=== PATIENT | female | born 1985 | race Hispanic/Latino ===

== ENCOUNTER 2022-09-17 00:02 | Inpatient (IN) | payer OTHER ==
[2022-09-17] MEDS ORDERED: Calcium Carbonate 500 MG ChewTAB PO PRN (00:57)
[2022-09-17] MEDS ORDERED: Ondansetron PF 4 MG/2 ML Vial IVP PRN (00:57)
[2022-09-17] MEDS ORDERED: Pantoprazole 40 MG VIAL IVP SCH ×2 (01:15→09:00)
[2022-09-17 02:18] VITALS: BMI 27.2
[2022-09-17 05:58] LABS: SARS-CoV-2 NAA Rapid Test Not Detected (NotDetected)
[2022-09-17 07:43] LABS: Anion Gap 15 mmol/L (10-20); BUN (Urea Nitrogen) 24 mg/dL (7.0-18.7); Calc. Creatinine Clearance 98 mL/min (70-130); Calcium 8.3 mg/dL (7.8-10.44); Chloride 129 mmol/L (98-107); Estimated GFR 88; Glucose 77 mg/dL (70-105); Potassium 3.5 mmol/L (3.5-5.1); Sodium 148 mmol/L (136-145)
[2022-09-17 07:47] LABS: Carbon Dioxide 8 mmol/L (22-29)
[2022-09-17 07:52] LABS: #Monocytes 0.3 10x3/uL (0.0-1.1); %Basophils 0.5 % (0.0-2.0); %Eosinophils 0.8 % (0.0-6.0); %Lymphocytes 12.4 % (18.0-47.0); %Monocytes 6.9 % (0.0-10.0); %Neutrophils 78.9 % (40.0-75.0); Hemoglobin 8.5 g/dL (12.0-15.5); Mean Corpuscular HGB CONC 30.4 g/dL (32.0-36.0); Mean Corpuscular Volume 105.3 fl (81.6-98.3); Mean Platelet Volume 11.9 fl (7.4-10.4); Platelet Count 76 10x3/uL (150-450); RBC Distribution Width 19.8 % (11.5-14.5); Red Blood Cell (RBC) Count 2.66 10x6/uL (3.90-5.03); White Blood Cell (WBC) Count 3.8 10x3/uL (3.5-10.5)
[2022-09-17] MEDS: Pantoprazole 40 MG VIAL IVP SCH ×2 (08:28→21:12)
[2022-09-17] MEDS: Spironolactone 25 MG TAB PO SCH (08:32)
[2022-09-17] MEDS: Cyanocobalamin (Vitamin B-12) 1,000 MCG TAB PO SCH (08:33)
[2022-09-17] MEDS: Multivitamin W/ Minerals 1 TAB PO SCH (08:33)
[2022-09-17] MEDS: Carvedilol 6.25 MG TAB PO SCH ×2 (08:34→16:38)
[2022-09-17] MEDS: Rifaximin 550 MG TAB PO SCH ×2 (08:34→21:11)
[2022-09-17] MEDS: Folic Acid 1 MG TAB PO SCH (08:35)
[2022-09-17] MEDS: Ferrous Sulfate 325 MG TAB PO SCH (08:35)
[2022-09-17 08:37] LABS: Burr Cells SLIGHT = 2-5 cells (100X) (0-1/hpf); Hypochromia SLIGHT = 6-15 cells (100X) (0-5/hpf); Macrocytosis SLIGHT = 6-15 cells (100X) (0-5/hpf); Schistocytes SLIGHT = 2-5 cells (100X) (0-1/hpf)
[2022-09-17 08:38] LABS: Polychromasia SLIGHT = 2-3 cells (100X) (0-2/hpf)
[2022-09-17 08:39] LABS: Platelet Morphology Comment Appears Decreased
[2022-09-17] MEDS ORDERED: Torsemide 20 MG TAB PO SCH (09:00)
[2022-09-17] MEDS ORDERED: RIOCIGUAT 0.5 MG PO SCH (09:00)
[2022-09-17 09:24] LABS: Actual Bicarbonate (HCO3v) 12 mEq/L (22-28); Base Excess -13.5 mEq/L (-2 - +2); Calcium, Ionized (venous) 1.16 mmol/L (1.16-1.32); Chloride (VBG) 122 mmol/L (98-106); Hemoglobin (Hb) 9.3 g/dL (11.7-15.5); Potassium (VBG) 3.63 mmol/L (3.70-5.30); Puncture Site Other Site; RapidComm Collect By LAB; Sodium 148.6 mmol/L (133-146)
[2022-09-17 10:12] LABS: ALT (SGPT) 25 U/L (8-55); AST (SGOT) 29 U/L (5-34); Albumin 2.9 g/dL (3.5-5.0); Alkaline Phosphatase 112 U/L (40-110); Anion Gap 13 mmol/L (10-20); BUN (Urea Nitrogen) 22 mg/dL (7.0-18.7); Bilirubin, Total 1.9 mg/dL (0.2-1.2); Calc. Creatinine Clearance 89 mL/min (70-130); Calcium 8.3 mg/dL (7.8-10.44); Carbon Dioxide 10 mmol/L (22-29); Chloride 128 mmol/L (98-107); Estimated GFR 79; Globulin 3.7 g/dL (2.4-3.5); Glucose 96 mg/dL (70-105); Iron 54 ug/dL (50-170); Iron Binding Capacity, Total 243 mcg/dL (265-497); Potassium 3.4 mmol/L (3.5-5.1); Protein, Total 6.6 g/dL (6.0-8.3); Sodium 148 mmol/L (136-145)
[2022-09-17] MEDS ORDERED: Sodium Bicarbonate Tab 325 MG TAB PO SCH (10:30)
[2022-09-17] MEDS: Dextrose 5% in Water 1,000 ML IV SCH ×2 (11:33→22:20)
[2022-09-17 12:12] LABS: Bilirubin Neg (Negative); Blood, Urine Negative (Negative); Clarity Clear (Clear); Glucose, Urine (Dipstick) Normal (Negative); Ketone, Urine Negative (Negative); Leukocyte Negative (Negative); Nitrite Negative (Negative); Protein, Urine (Dipstick) Negative (Neg-Trace); Specific Gravity, Urine 1.005 (1.005-1.030); Urobilinogen Normal mg/dL (Less than 2)
[2022-09-17] MEDS: Acetaminophen 500 MG TAB PO PRN ×2 (12:12→19:01)
[2022-09-17 12:23] LABS: RBC/HPF 0-3 HPF (0-3); Squamous Epithelial 0-3 HPF (0-3); WBC/HPF 0-3 HPF (0-3)
[2022-09-17 12:24] LABS: Bacteria/HPF 1+ HPF (None Seen)
[2022-09-17] MEDS ORDERED: cefTRIAXone\\ROCEPHIN 1 GM in Sodium Chloride 0.9% 100 ML IVPB SCH (12:45)
[2022-09-17] MEDS: Sodium Bicarbonate Tab 325 MG TAB PO SCH ×2 (14:25→21:11)
[2022-09-17] MEDS: Morphine 2 MG/ML VIAL SLOW IVP PRN ×2 (16:37→21:12)
[2022-09-17 17:08] LABS: Potassium, Urine Less than 10.0 mmol/L; Sodium, Urine 138 mmol/L (Not Available)
[2022-09-17] MEDS: SELEXIPAG 800 MCG PO SCH (21:34)
[2022-09-17] MEDS: SELEXIPAG 200 MCG PO SCH (21:34)
[2022-09-17 22:06] LABS: Anion Gap 12 mmol/L (10-20); BUN (Urea Nitrogen) 19 mg/dL (7.0-18.7); Calc. Creatinine Clearance 73 mL/min (70-130); Calcium 7.5 mg/dL (7.8-10.44); Carbon Dioxide 15 mmol/L (22-29); Chloride 118 mmol/L (98-107); Estimated GFR 62; Glucose 92 mg/dL (70-105); Potassium 3.3 mmol/L (3.5-5.1); Sodium 142 mmol/L (136-145)
[2022-09-18] MEDS: Morphine 2 MG/ML VIAL SLOW IVP PRN ×2 (01:47→13:51)
[2022-09-18] MEDS ORDERED: Potassium Chloride 20 MEQ TAB PO SCH (08:00)
[2022-09-18] MEDS ORDERED: Sodium Bicarbonate 150 MEQ in Dextrose 5% in Water 1,000 ML IV SCH (08:00)
[2022-09-18] MEDS ORDERED: Pantoprazole 40 MG VIAL ONE (08:12)
[2022-09-18] MEDS: Dextrose 5% in Water 1,000 ML IV SCH (08:28)
[2022-09-18] MEDS ORDERED: MACITENTAN 10 MG PO SCH (09:00)
[2022-09-18] MEDS: Spironolactone 25 MG TAB PO SCH (09:41)
[2022-09-18] MEDS: Ferrous Sulfate 325 MG TAB PO SCH (09:41)
[2022-09-18] MEDS: Sodium Bicarbonate Tab 325 MG TAB PO SCH ×3 (09:41→20:38)
[2022-09-18] MEDS: Rifaximin 550 MG TAB PO SCH ×2 (09:41→20:37)
[2022-09-18] MEDS: Folic Acid 1 MG TAB PO SCH (09:41)
[2022-09-18] MEDS: SELEXIPAG 800 MCG PO SCH ×3 (09:42→21:03)
[2022-09-18] MEDS: SELEXIPAG 200 MCG PO SCH ×2 (09:42→20:39)
[2022-09-18] MEDS: Cyanocobalamin (Vitamin B-12) 1,000 MCG TAB PO SCH (09:43)
[2022-09-18] MEDS: Multivitamin W/ Minerals 1 TAB PO SCH (09:43)
[2022-09-18] MEDS: Carvedilol 6.25 MG TAB PO SCH ×2 (09:43→17:24)
[2022-09-18] MEDS: Pantoprazole 40 MG VIAL IVP SCH ×2 (09:43→20:38)
[2022-09-18 10:40] LABS: #Monocytes 0.2 10x3/uL (0.0-1.1); %Basophils 0.4 % (0.0-2.0); %Eosinophils 1.5 % (0.0-6.0); %Lymphocytes 11.8 % (18.0-47.0); %Monocytes 8.4 % (0.0-10.0); %Neutrophils 77.5 % (40.0-75.0); Hemoglobin 7.5 g/dL (12.0-15.5); Mean Corpuscular HGB CONC 30.4 g/dL (32.0-36.0); Mean Corpuscular Hemoglobin 31.4 pg (27.0-33.0); Mean Corpuscular Volume 103.3 fl (81.6-98.3); Mean Platelet Volume 12.6 fl (7.4-10.4); Platelet Count 85 10x3/uL (150-450); RBC Distribution Width 18.2 % (11.5-14.5); Red Blood Cell (RBC) Count 2.39 10x6/uL (3.90-5.03); White Blood Cell (WBC) Count 2.6 10x3/uL (3.5-10.5)
[2022-09-18 10:47] LABS: Anion Gap 10 mmol/L (10-20); BUN (Urea Nitrogen) 15 mg/dL (7.0-18.7); Calc. Creatinine Clearance 75 mL/min (70-130); Calcium 7.4 mg/dL (7.8-10.44); Carbon Dioxide 15 mmol/L (22-29); Chloride 114 mmol/L (98-107); Estimated GFR 64; Glucose 106 mg/dL (70-105); Potassium 2.7 mmol/L (3.5-5.1); Sodium 136 mmol/L (136-145)
[2022-09-18 10:48] LABS: ALT (SGPT) 24 U/L (8-55); AST (SGOT) 27 U/L (5-34); Albumin 2.5 g/dL (3.5-5.0); Alkaline Phosphatase 92 U/L (40-110); Bilirubin, Direct 0.4 mg/dL (0.1-0.3); Bilirubin, Total 0.9 mg/dL (0.2-1.2); Protein, Total 5.8 g/dL (6.0-8.3)
[2022-09-18] MEDS ORDERED: Electrolyte Replacement Protocol 1 EACH FS SCH (12:45)
[2022-09-18] MEDS ORDERED: Potassium Chloride 40 MEQ in Premix Bag 1 BAG IVPB SCH (12:45)
[2022-09-18] MEDS ORDERED: Electrolyte Replacement Protocol FS PRN (12:45)
[2022-09-18] MEDS ORDERED: Potassium Chloride 20 MEQ in Premix Bag 1 BAG IVPB SCH ×2 (13:00→16:00)
[2022-09-18] MEDS ORDERED: Piperacillin/Tazobactam 3.375 GM in Sodium Chloride 0.9% 100 ML IVPB SCH (13:00)
[2022-09-18 13:26] LABS: Hemoglobin 7.9 g/dL (12.0-15.5); Platelet Count 87 10x3/uL (150-450)
[2022-09-18 13:34] LABS: Anion Gap 12 mmol/L (10-20); BUN (Urea Nitrogen) 16 mg/dL (7.0-18.7); Calc. Creatinine Clearance 65 mL/min (70-130); Calcium 7.9 mg/dL (7.8-10.44); Carbon Dioxide 14 mmol/L (22-29); Chloride 114 mmol/L (98-107); Estimated GFR 54; Glucose 101 mg/dL (70-105); Magnesium 1.5 mg/dL (1.6-2.6); Potassium 3.2 mmol/L (3.5-5.1); Sodium 137 mmol/L (136-145)
[2022-09-18] MEDS: Nystatin 500,000 UNITS/5 ML UDCUP SSW SCH ×3 (13:54→20:37)
[2022-09-18] MEDS ORDERED: Piperacillin/Tazobactam 3.375 GM VIAL ONE (14:05)
[2022-09-18] MEDS ORDERED: Magnesium 2 GM/50 ML(in water) 2 GM in Premix Bag 1 BAG IVPB SCH (15:00)
[2022-09-18] MEDS ORDERED: Potassium Chloride 20 MEQ/100 ML PREMIX BAG ONE (16:27)
[2022-09-18] MEDS ORDERED: Magnesium 2 GM/50 ML BAG (IN WATER) ONE (16:27)
[2022-09-18] MEDS ORDERED: Albumin 25% 25 GM/100 ML BOT IVPB SCH (17:00)
[2022-09-18] MEDS ORDERED: Sodium Chloride 0.9% 250 ML IV SCH (17:00)
[2022-09-18] MEDS: Piperacillin/Tazobactam 3.375 GM in Sodium Chloride 0.9% 100 ML IVPB SCH (18:14)
[2022-09-18] MEDS: Albumin 25% 25 GM/100 ML BOT IVPB SCH ×2 (18:46→23:41)
[2022-09-18 20:18] LABS: Potassium 4.1 mmol/L (3.5-5.1)
[2022-09-18] MEDS ORDERED: Apixaban 2.5 MG TAB PO SCH (21:00)
[2022-09-19] MEDS: Piperacillin/Tazobactam 3.375 GM in Sodium Chloride 0.9% 100 ML IVPB SCH (00:43)
[2022-09-19 03:45] LABS: #Eosinphils 0.1 10x3/uL (0.0-0.5); #Monocytes 0.3 10x3/uL (0.0-1.1); #Neutrophils 1.7 10x3/uL (1.5-8.4); %Basophils 0.4 % (0.0-2.0); %Eosinophils 2.4 % (0.0-6.0); %Lymphocytes 13.4 % (18.0-47.0); %Monocytes 12.2 % (0.0-10.0); %Neutrophils 70.8 % (40.0-75.0); Hemoglobin 7.9 g/dL (12.0-15.5); Mean Corpuscular HGB CONC 29.9 g/dL (32.0-36.0); Mean Corpuscular Hemoglobin 31.6 pg (27.0-33.0); Mean Corpuscular Volume 105.6 fl (81.6-98.3); Mean Platelet Volume 12.6 fl (7.4-10.4); Platelet Count 65 10x3/uL (150-450); RBC Distribution Width 17.7 % (11.5-14.5); White Blood Cell (WBC) Count 2.5 10x3/uL (3.5-10.5)
[2022-09-19 04:02] LABS: Anion Gap 13 mmol/L (10-20); BUN (Urea Nitrogen) 15 mg/dL (7.0-18.7); Calc. Creatinine Clearance 61 mL/min (70-130); Calcium 8.2 mg/dL (7.8-10.44); Carbon Dioxide 19 mmol/L (22-29); Chloride 111 mmol/L (98-107); Estimated GFR 50; Glucose 96 mg/dL (70-105); Magnesium 2.3 mg/dL (1.6-2.6); Potassium 3.7 mmol/L (3.5-5.1); Sodium 139 mmol/L (136-145)
[2022-09-19] MEDS: Morphine 2 MG/ML VIAL SLOW IVP PRN (04:11)
[2022-09-19 04:22] LABS: Anisocytosis SLIGHT = 6-15 cells (100X) (0-5/hpf); Macrocytosis SLIGHT = 6-15 cells (100X) (0-5/hpf); Polychromasia SLIGHT = 2-3 cells (100X) (0-2/hpf); Schistocytes SLIGHT = 2-5 cells (100X) (0-1/hpf)
[2022-09-19 04:23] LABS: Platelet Morphology Comment Appears Decreased; Tear Drops SLIGHT = 2-5 cells (100X) (0-1/hpf)
[2022-09-19 05:03] VITALS: BP 102/63; TEMP 99.1
[2022-09-19] MEDS: Albumin 25% 25 GM/100 ML BOT IVPB SCH (05:14)
== END 2022-09-19 05:50 | disposition short-term general hospital (02) | DRG 442 ==
LOC: CSHTELE 00:02 → OBSVTOIN 09:06 → CSHIMCU 09-18 18:39
PROVIDERS: ADMIT Student in an Organized Health Care Education/Training Program; ATTEND Family Medicine
DX: K76.82 Hepatic encephalopathy (principal); C22.0 Liver cell carcinoma; E87.20 Acidosis, unspecified; K76.6 Portal hypertension; I50.32 Chronic diastolic (congestive) heart failure; E87.0 Hyperosmolality and hypernatremia; R18.8 Other ascites; N17.9 Acute kidney failure, unspecified; K74.60 Unspecified cirrhosis of liver; I27.20 Pulmonary hypertension, unspecified; I50.810 Right heart failure, unspecified; E83.42 Hypomagnesemia; D69.6 Thrombocytopenia, unspecified; D63.8 Anemia in other chronic diseases classified elsewhere; J06.9 Acute upper respiratory infection, unspecified; E87.6 Hypokalemia; M32.9 Systemic lupus erythematosus, unspecified; M06.9 Rheumatoid arthritis, unspecified; I11.0 Hypertensive heart disease with heart failure; K59.00 Constipation, unspecified; Z91.14 Patient's other noncompliance with medication regimen; Z86.11 Personal history of tuberculosis; Z79.01 Long term (current) use of anticoagulants; Z98.890 Other specified postprocedural states; Z20.822 Contact with and (suspected) exposure to COVID-19
CPT/HCPCS: 36415; 36416; 70450; 71045; 80048; 80076; 81001; 82247; 82274; 82306; 82436; 82805; 83540; 83550; 83735; 84133; 84145; 84300; 85025; 85652; 86140; 86160; 87040; 87081; 87086; 87430; 87633; 94760; 96374; 96376; C9113; G0378; J0696; J2272; J2405; J2543; J3475; J3480; J3490; J7070; P9047; U0002